=== PATIENT | male | born 1980 | race Caucasian/White ===

== ENCOUNTER 2018-08-21 16:28 | Emergency (ER) | payer SELFPAY ==
[~2018-08-21] VITALS: Ht 182.9 cm; Wt 104.3 kg
[2018-08-21 16:44] VITALS: Ht 182.9 cm; Wt 104.3 kg
[2018-08-21 20:02] VITALS: BP 152/99
== END 2018-08-21 20:02 | disposition other institution (70) ==
LOC: ED 16:28
DX: I10 Essential (primary) hypertension (principal)

== ENCOUNTER 2018-08-21 16:28 | Emergency (ER) | payer OTHER | END 2018-08-21 20:02 | disposition other institution (70) | LOC: ED 16:28 | DX: Z02.89 Encounter for other administrative examinations (principal) ==